=== PATIENT | female | born 1970 | race American Indian/Alaskan Native ===

== ENCOUNTER 2019-10-12 09:57 | Emergency (ER) | payer OTHER ==
[2019-10-12] MEDS ORDERED: CYCLOBENZAPRINE 10 MG TAB PO ONE (11:13)
[2019-10-12] MEDS ORDERED: KETOROLAC 60 MG/2 ML INJ IM ONE (11:13)
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
[2019-10-12 11:43] VITALS: BP 133/90
== END 2019-10-12 12:12 | disposition home or self-care (01) ==
LOC: ED 09:57
DX: S29.012A Strain of muscle and tendon of back wall of thorax, initial encounter (principal); I10 Essential (primary) hypertension; V89.2XXA Person injured in unspecified motor-vehicle accident, traffic, initial encounter; Y93.89 Activity, other specified; Y92.410 Unspecified street and highway as the place of occurrence of the external cause; Y99.8 Other external cause status
CPT/HCPCS: 96372; 99282; J1885